=== PATIENT | female | born 1950 | race Caucasian/White ===

== ENCOUNTER → 2018-05-25 | Outpatient (CLI) | payer MEDICARE ==
[~2018-05-25] MED LIST: ACHD5005 PO; ASPI-586 PO; CALC500T24 PO; GABA-488 PO; LISI30TA5 PO; LOVA20TA2 PO; OMG1KC PO
--- NOTE | 2018-05-25 10:09 | Diagnostic Imaging Report ---
INDICATION: Screening. COMPARISON: 01/03/2016 back through 08/19/2012. TECHNIQUE: 3D tomosynthesis was performed and reviewed. FINDINGS: There are scattered fibroglandular densities bilaterally. There is no dominant mass, spiculated lesion, or suspicious calcification identified. There are a few benign type calcifications. The skin, nipples, and axillae are unremarkable. IMPRESSION: Benign findings as above. ACR BI-RADS Category 2: Benign findings. Result letter will be mailed to the patient. Note: At least 10% of breast cancer is not imaged by mammography. Dictated by: Dictated on workstation # [id number]
--- NOTE | 2018-05-25 13:22 | Diagnostic Imaging Report ---
INDICATION: Tobacco use qualifying for lung screening. Patient has a 20-[id number]-pxsx smoking history. COMPARISON: No prior examinations are available for comparison. TECHNIQUE: Multiple contiguous axial images were obtained through the chest utilizing low-dose CT protocol. Sagittal and coronal reformations were then performed. FINDINGS: There is a 3 mm nodule in the right upper lobe on image 60/series 4. There is a second 3 mm nodule on image 14/series 2 in the right upper lobe. There is a 3 mm nodule in the left lower lobe on image 22/series 2. There is no pathologically enlarged adenopathy in the chest. The heart size is normal. There are no endobronchial lesions. There is no pleural or pericardial fluid. There is no pneumothorax. The thoracic aorta is normal in caliber. There are some coronary artery calcifications. The visualized intra-abdominal structures are unremarkable. The osseous structures are unremarkable. IMPRESSION: LUNG RADS CATEGORY: 2. Continue annual screening with low-density CT in 12 months. ADDITIONAL FINDINGS: Coronary artery calcifications. Dictated by: Dictated on workstation # [id number]
== END ==
LOC: RAD 08:17
PROVIDERS: ATTEND Nurse Practitioner Family
DX: Z12.31 Encounter for screening mammogram for malignant neoplasm of breast (principal); Z12.2 Encounter for screening for malignant neoplasm of respiratory organs; I25.10 Atherosclerotic heart disease of native coronary artery without angina pectoris; F17.210 Nicotine dependence, cigarettes, uncomplicated; M85.88 Other specified disorders of bone density and structure, other site
CPT/HCPCS: 77067; 77080

== ENCOUNTER → 2019-09-27 | Outpatient (CLI) | payer MEDICARE ==
--- NOTE | 2019-09-27 12:00 | Diagnostic Imaging Report ---
EXAMINATION: CT Lung Screening. INDICATION: Nicotine dependence, screening for lung cancer, 40 pack year history of smoking. TECHNIQUE: Noncontrast, low-dose CT imaging performed according to the lung cancer screening protocol. Auto Exposure Controls were utilize during the CT exam to meet ALARA standards for radiation dose reduction. COMPARISON: 05/25/2018. FINDINGS: No significant adenopathy within the chest. Minimal scattered vascular calcifications. No aneurysmal dilatation of the thoracic aorta. The heart is within normal limits in size. No pericardial effusion. No pleural effusion. No pneumothorax. Minimal biapical pleural parenchymal scarring. 3 mm x 3 mm solid subpleural left lower lobe pulmonary nodule, axial image 140, is stable from the prior examination. Stable 3 mm x 3 mm solid pulmonary nodule within the right upper lobe, axial image 88. 2 mm subpleural right upper lobe pulmonary nodule is also stable, axial image 54. No new pulmonary nodule or opacity. The trachea is patent. The minimally visualized upper abdomen is unremarkable. No acute osseous abnormality. IMPRESSION: Stable sub-4 mm bilateral pulmonary nodules without new pulmonary nodule. No acute cardiopulmonary abnormality. LUNG-RADS CATEGORY:2: Benign appearance or behavior Follow-up: Continued annual screening low dose CT of the chest in 12 months. Dictated by: Dictated on workstation # [id number]
== END ==
LOC: RAD 10:56
PROVIDERS: ATTEND Nurse Practitioner Family
DX: Z12.2 Encounter for screening for malignant neoplasm of respiratory organs (principal); R91.8 Other nonspecific abnormal finding of lung field; F17.210 Nicotine dependence, cigarettes, uncomplicated

== ENCOUNTER 2020-04-15 10:59 | Inpatient (IN) | payer MEDICARE ==
[~2020-04-15] VITALS: Ht 162 cm; Wt 59.9 kg
[2020-04-15 11:59] LABS: BASOPHILS # (AUTO) 0.1 10^3/uL (0.0-0.1); BASOPHILS % (AUTO) 0 % (0-10); EOSINOPHILS # (AUTO) 0.3 10^3/uL (0.0-0.3); EOSINOPHILS % (AUTO) 2 % (0-10); HEMATOCRIT 41 % (35-52); HEMOGLOBIN 14.6 g/dL (11.5-16.0); LYMPHOCYTES # (AUTO) 3.6 10^3/uL (1.0-4.0); LYMPHOCYTES % (AUTO) 24 % (12-44); MEAN CORPUSCULAR HEMOGLOBIN 32 pg (25-34); MEAN CORPUSCULAR HGB CONC 36 g/dL (32-36); MEAN CORPUSCULAR VOLUME 90 fL (80-99); MONOCYTES # (AUTO) 1.4 10^3/uL (0.0-1.0); MONOCYTES % (AUTO) 9 % (0-12); NEUTROPHILS # (AUTO) 9.5 10^3/uL (1.8-7.8); NEUTROPHILS % (AUTO) 64 % (42-75); PLATELET COUNT 239 10^3/uL (130-400); WHITE BLOOD COUNT 14.9 10^3/uL (4.3-11.0)
[2020-04-15] MEDS ORDERED: fentaNYL INJECTION 100 MCG/2 ML AMP IVP ONE (12:00)
[2020-04-15 12:04] LABS: ALBUMIN 4.3 GM/DL (3.2-4.5); CHLORIDE 97 MMOL/L (98-107); POTASSIUM 3.1 MMOL/L (3.6-5.0); SODIUM 136 MMOL/L (135-145)
[2020-04-15 12:05] LABS: CALCIUM 9.7 MG/DL (8.5-10.1)
[2020-04-15] MEDS: NS IV 500 ML 500 ML IV SCH (12:05)
--- NOTE | 2020-04-15 12:05 | ED Abdominal Pain ---
General Chief Complaint: Abdominal/GI Problems Stated Complaint: RUQ PAIN Nursing Triage Note: ARRIVED VIA WC TO ROOM 05 WITH COMPLAINTS OF RLQ PAIN STARTING ON THURSDAY. WAS SEEN AT THE CLINIC ON THURSDAY AND WAS TOLD SHE NEEDED TO HAVE A BM. STATES SHE TOOK A LAXITIVE AND HAD A BM BUT THE PAIN REMAINS. Sepsis Screen: Possible Severe Sepsis Risk Source of Information: Patient Exam Limitations: No Limitations History of Present Illness Date Seen by Provider: Apr 15, 2020 Time Seen by Provider: 12:02 Initial Comments Patient is a 70-year-old female who presents to the emergency department today with a chief complaint of abdominal pain. Patient states that her abdominal pain started 5 days ago on Thursday evening. Patient states that she had not had a bowel movement in a couple of days prior to this. Patient started taking some mag citrate and on started developing diarrhea. She states that the pain is continued to persist. It is specifically localized in the left lower quadrant and radiates a little bit into the right lower quadrant. Patient denies any fevers or chills. She denies chest pain, shortness of breath, URI symptoms. She denies nausea and vomiting. She is able to eat and drink and is specifically asking for a drink of water at this time. Patient does relate that she has had previous colonoscopy a few years ago which demonstrated diverticulosis at that time. Patient has had previous appendectomy and cholecystectomy. She denies any dysuria, urgency or frequency. She states she is a healthy person. Patient has a history of hypertension. All other review of systems reviewed and negative except as stated above. Allergies and Home Medications Allergies Coded Allergies: NSAIDS (Non-Steroidal Anti-Inflamma (Verified Allergy, Severe, HYPERTENSION, 02/07/16) Penicillins (Verified Allergy, Intermediate, HIVES/SWELLING, 02/07/16) Sulfa (Sulfonamide Antibiotics) (Verified Allergy, Intermediate, HIVES/SWELLING, 02/07/16) Home Medications Calcium Carbonate 500 Mg Tab.chew, 500 MG PO BID, (Reported) Gabapentin 300 Mg Capsule, 300 MG PO TID, (Reported) Hydrocodone Bit/Acetaminophen 1 Each Tablet, 0.5 EACH PO HS, (Reported) Lisinopril 30 Mg Tablet, 30 MG PO DAILY, (Reported) Lovastatin 20 Mg Tablet, 20 MG PO DAILY, (Reported) [place] 3 Polyunsat Fatty Acids 1,000 Mg Cap, 1,000 MG PO BID, (Reported) Patient Home Medication List Home Medication List Reviewed: Yes Review of Systems Review of Systems Constitutional: see HPI EENTM: No Symptoms Reported Respiratory: No Symptoms Reported; Denies Cough, Denies Shortness of Air Cardiovascular: No Symptoms Reported Gastrointestinal: Abdomen Distended, Abdominal Pain, Diarrhea Genitourinary: No Symptoms Reported Musculoskeletal: no symptoms reported Skin: no symptoms reported Psychiatric/Neurological: No Symptoms Reported All Other Systems Reviewed Negative Unless Noted: Yes Past Ohjlgui-Flpmtl-Ingcbq Hx Patient Social History Type Used: Cigars Recent Infectious Disease Expo: No Recent Hopitalizations: No Immunizations Up To Date Tetanus Booster (TDap): Unknown PED Vaccines UTD: No Date of Pneumonia Vaccine: Jan 30, 2014 Date of Influenza Vaccine: Jan 07, 2016 Seasonal Allergies Seasonal Allergies: Yes Past Medical History Surgeries: Yes Appendectomy, Gallbladder, Tonsillectomy, Tubal Ligation Respiratory: No Cardiac: Yes Hypertension Neurological: No Reproductive Disorders: No Female Reproductive Disorders: Denies Sexually Transmitted Disease: No HIV/AIDS: No Gastrointestinal: No Musculoskeletal: Yes (HERNIATED DISC) Arthritis, Chronic Back Pain Endocrine: No Loss of Vision: Bilateral Hearing Impairment: Denies Cancer: No Psychosocial: No Integumentary: No Blood Disorders: No Adverse Reaction/Blood Tranf: No (N/A) Physical Exam Vital Signs Vital Signs - First Documented 04/15/20 11:13 Temp 35.6 Pulse 108 Resp 16 Pulse Ox 98 O2 Delivery Room Air Capillary Refill : Less Than 3 Seconds Height/Weight/BMI Height: 5'5.00" Weight: 129lbs. 0.8oz. 58.026408op; 21.00 BMI Method: General Appearance: WD/WN, no apparent distress Respiratory: lungs clear, normal breath sounds, no respiratory distress, no accessory muscle use Cardiovascular: regular rate, rhythm Gastrointestinal: soft, abnormal bowel sounds (Hyperactive), distended, guarding, tenderness (Left lower quadrant right lower quadrant) Extremities: non-tender, normal inspection, no pedal edema, no calf tenderness Neurologic/Psychiatric: alert, normal mood/affect, oriented x 3 Skin: normal color, warm/dry Progress/Results/Core Measures Results/Orders Lab Results Laboratory Tests Test 04/15/20 11:18 Range/Units White Blood Count 14.9 H 4.3-11.0 10^3/uL Red Blood Count 4.56 3.80-5.11 10^6/uL Hemoglobin 14.6 11.5-16.0 g/dL Hematocrit 41 35-52 % Mean Corpuscular Volume 90 80-99 fL Mean Corpuscular Hemoglobin 32 25-34 pg Mean Corpuscular Hemoglobin Concent 36 32-36 g/dL Red Cell Distribution Width 13.2 10.0-14.5 % Platelet Count 239 130-400 10^3/uL Mean Platelet Volume 11.0 9.0-12.2 fL Immature Granulocyte % (Auto) 1 % Neutrophils (%) (Auto) 64 42-75 % Lymphocytes (%) (Auto) 24 12-44 % Monocytes (%) (Auto) 9 0-12 % Eosinophils (%) (Auto) 2 0-10 % Basophils (%) (Auto) 0 0-10 % Neutrophils # (Auto) 9.5 H 1.8-7.8 10^3/uL Lymphocytes # (Auto) 3.6 1.0-4.0 10^3/uL Monocytes # (Auto) 1.4 H 0.0-1.0 10^3/uL Eosinophils # (Auto) 0.3 0.0-0.3 10^3/uL Basophils # (Auto) 0.1 0.0-0.1 10^3/uL Immature Granulocyte # (Auto) 0.1 0.0-0.1 10^3/uL Neutrophils % (Manual) 66 % Lymphocytes % (Manual) 27 % Monocytes % (Manual) 4 % Eosinophils % (Manual) 3 % Basophils % (Manual) 0 % Band Neutrophils 0 % Blood Morphology Comment NORMAL Sodium Level 136 135-145 MMOL/L Potassium Level 3.1 L 3.6-5.0 MMOL/L Chloride Level 97 L 98-107 MMOL/L Carbon Dioxide Level 25 21-32 MMOL/L Anion Gap 14 5-14 MMOL/L Blood Urea Nitrogen 19 H 7-18 MG/DL Creatinine 0.81 0.60-1.30 MG/DL Estimat Glomerular Filtration Rate > 60 BUN/Creatinine Ratio 23 Glucose Level 120 H 70-105 MG/DL Calcium Level 9.7 8.5-10.1 MG/DL Corrected Calcium 9.5 8.5-10.1 MG/DL Total Bilirubin 0.7 0.1-1.0 MG/DL Aspartate Amino Transf (AST/SGOT) 21 5-34 U/L Alanine Aminotransferase (ALT/SGPT) 36 0-55 U/L Alkaline Phosphatase 118 40-136 U/L Total Protein 8.0 6.4-8.2 GM/DL Albumin 4.3 3.2-4.5 GM/DL Lipase 8 8-78 U/L My Orders Orders - TIARA GAONA MD Ed Iv/Invasive Line Start (04/15/20 11:54) Cbc With Automated Diff (04/15/20 11:54) Comprehensive Metabolic Panel (04/15/20 11:54) Lipase (04/15/20 11:54) Ct Abdomen/Pelvis Wo (04/15/20 11:54) Fentanyl Injection (Sublimaze Injection (04/15/20 12:00) Ns Iv 500 Ml (Sodium Chloride 0.9%) (04/15/20 12:00) Manual Differential (04/15/20 11:18) Medications Given in ED Current Medications Medications Dose Ordered Sig/Bill Route Start Time Stop Time Status Last Admin Dose Admin Fentanyl Citrate 25 mcg ONCE ONCE IVP 04/15/20 12:00 04/15/20 12:01 DC 04/15/20 12:04 25 MCG Vital Signs/I&O 04/15/20 11:13 Temp 35.6 Pulse 108 Resp 16 B/P (MAP) Pulse Ox 98 O2 Delivery Room Air Progress Progress Note : Time: 12:50 Progress Note Patient currently resting comfortably. No pain unless she is moving around. CT abdomen and pelvis shows findings consistent with acute appendicitis and likely sequelae of small perforation with small abscess formation in the right lower quadrant. Case is discussed with Dr. Wilkerson who will come to the emergency room to evaluate the patient. Patient's NPO status is 5:30 am she had coffee with milk. SHe hasnt really had any solid food to speak of in 3 days due to having constipation and then diarrhea Departure Communication (Admissions) Time/Spoke to Admitting Phy: 12:50 Impression Primary Impression: Abdominal pain Qualified Codes: R10.31 - Right lower quadrant pain Additional Impression: Acute appendicitis Qualified Codes: K35.33 - Acute appendicitis with perforation and localized peritonitis, with abscess Disposition: ADMITTED INPATIENT Condition: Stable Admissions Decision to Admit Reason: Admit from ER (General) Departure-Patient Inst. Referrals: DIONI GAGE DO (PCP) Primary Care Physician NISHA PAPPAS (Family) Primary Care Physician TIARA GAONA MD Apr 15, 2020 12:05
[2020-04-15 12:06] LABS: GLUCOSE 120 MG/DL (70-105)
[2020-04-15 12:08] LABS: BILIRUBIN,TOTAL 0.7 MG/DL (0.1-1.0); CARBON DIOXIDE 25 MMOL/L (21-32)
[2020-04-15 12:10] LABS: ALKALINE PHOSPHATASE 118 U/L (40-136); CREATININE SERUM 0.81 MG/DL (0.60-1.30); GFR ESTIMATED > 60
[2020-04-15 12:11] LABS: BUN/CREATININE RATIO 23
[2020-04-15 12:13] LABS: ALANINE AMINOTRANSFERASE 36 U/L (0-55); LIPASE 8 U/L (8-78)
[2020-04-15 12:14] LABS: BAND NEUTROPHILS 0 %; BASOPHILS % (MANUAL) 0 %; EOSINOPHILS % (MANUAL) 3 %; LYMPHOCYTES % (MANUAL) 27 %; MONOCYTES % (MANUAL) 4 %; NEUTROPHILS % (MANUAL) 66 %; RBC MORPH NORMAL
--- NOTE | 2020-04-15 12:36 | Diagnostic Imaging Report ---
PROCEDURE: CT abdomen and pelvis without contrast. TECHNIQUE: Multiple contiguous axial images were obtained through the abdomen and pelvis without the use of intravenous contrast. Auto Exposure Controls were utilized during the CT exam to meet ALARA standards for radiation dose reduction. INDICATION: Right lower quadrant pain. Abdominal distention. COMPARISON: 09/27/2019. FINDINGS: The heart is unremarkable. Minimal dependent atelectasis is seen. The appendix is dilated measuring 1.0 cm in diameter. Multiple appendicoliths are noted. There is periappendicular fat stranding. A loculated collection is seen adjacent to the appendix measuring 2.7 x 1.9 cm, suspicious for abscess secondary to perforation. A small amount of air is seen within this collection. No free fluid or free air is seen in the abdomen and pelvis. No evidence of bowel obstruction. There is hepatic steatosis. The gallbladder is surgically absent. The spleen, pancreas, adrenal glands, and kidneys have a normal noncontrast CT appearance. There is no pathologically enlarged mesenteric or retroperitoneal adenopathy. No acute fracture seen in the abdomen and pelvis. Degenerative changes are present in the lumbar spine. The urinary bladder is decompressed. IMPRESSION: 1. Findings representing acute appendicitis with likely sequelae of perforation and small abscess formation in the right lower quadrant. No free air or free fluid is seen in the abdomen and pelvis. No evidence of bowel obstruction. 2. Hepatic steatosis. Dictated by: Dictated on workstation # [id number]
--- NOTE | 2020-04-15 13:18 | NUR ---
DR NUNEZ HERE TO SEE THE PT.
--- NOTE | 2020-04-15 13:44 | Consultation - Surgery ---
History of Present Illness History of Present Illness Patient Consulted On(kurt/time) 04/15/20 13:38 Time Seen by Provider: 13:17 History of Present Illness Surgery asked to consult regarding Right sided abdominal pain. HPI per ED: Patient is a 70-year-old [facility] with a chief complaint of abdominal pain. Patient states that her abdominal pain started 5 days ago on Thursday evening. Patient states that she had not had a bowel movement in a couple of days prior to this. Patient started taking some mag citrate and on started developing diarrhea. She states that the pain is continued to persist. It is specifically localized in the left lower quadrant and radiates a little bit into the right lower quadrant. Patient denies any fevers or chills. She denies chest pain, shortness of breath, URI symptoms. She denies nausea and vomiting. She is able to eat and drink and is specifically asking for a drink of water at this time. Patient does relate that she has had previous colonoscopy a few years ago which demonstrated diverticulosis at that time. Patient has had previous appendectomy and cholecystectomy. She denies any dysuria, urgency or frequency. She states she is a healthy person. Patient has a history of hypertension. When I spoke to pt she stated she has never had pain like this before. She thought pain was more on the left, but now is more on the right. Rating it as 8 out of 10 and was worse with movements. Nothing is really making it better. Allergies and Home Medications Allergies Coded Allergies: NSAIDS (Non-Steroidal Anti-Inflamma (Verified Allergy, Severe, HYPERTENSION, 02/07/16) Penicillins (Verified Allergy, Intermediate, HIVES/SWELLING, 02/07/16) Sulfa (Sulfonamide Antibiotics) (Verified Allergy, Intermediate, HIVES/SWELLING, 02/07/16) Home Medications Calcium Carbonate 500 Mg Tab.chew, 500 MG PO BID, (Reported) Gabapentin 300 Mg Capsule, 300 MG PO TID, (Reported) Hydrocodone Bit/Acetaminophen 1 Each Tablet, 0.5 EACH PO HS, (Reported) Lisinopril 30 Mg Tablet, 30 MG PO DAILY, (Reported) Lovastatin 20 Mg Tablet, 20 MG PO DAILY, (Reported) [place] 3 Polyunsat Fatty Acids 1,000 Mg Cap, 1,000 MG PO BID, (Reported) Patient Home Medication List Home Medication List Reviewed: Yes Past Bqijllx-Dhqsgp-Vpzxfy Hx Patient Social History Smoking Status: Current Someday Smoker Type Used: Cigars Recent Hopitalizations: No Alcohol Use?: No Immunizations Up To Date Tetanus Booster (TDap): Unknown PED Vaccines UTD: No Date of Pneumonia Vaccine: Jan 30, 2014 Date of Influenza Vaccine: Jan 07, 2016 Seasonal Allergies Seasonal Allergies: Yes Surgeries History of Surgeries: Yes Surgeries: Appendectomy, Gallbladder, Tonsillectomy, Tubal Ligation Respiratory History of Respiratory Disorde: No Cardiovascular History of Cardiac Disorders: Yes Cardiac Disorders: Hypertension Neurological History of Neurological Disord: No Reproductive System Hx Reproductive Disorders: No Sexually Transmitted Disease: No HIV/AIDS: No Female Reproductive Disorders: Denies Genitourinary History of Genitourinary Disor: No Gastrointestinal History of Gastrointestinal Di: No Musculoskeletal History of Musculoskeletal Dis: Yes (HERNIATED DISC) Musculoskeletal Disorders: Arthritis, Chronic Back Pain Endocrine History of Endocrine Disorders: No HEENT History of HEENT Disorders: No Loss of Vision: Bilateral Hearing Impairment: Denies Cancer History of Cancer: No Psychosocial History of Psychiatric Problem: No Integumentary History of Skin or Integumenta: No Blood Transfusions History of Blood Disorders: No Adverse Reaction to a Blood Tr: No (N/A) Family Medical History Significant Family History: Heart Disease (both parents), Cancer (Father - Lung CA), Hypertension (Mother) Review of Systems-General Constitutional: fever; No malaise, No weakness EENTM: No mouth pain, No mouth swelling, No epistaxis, No throat pain, No throat swelling Respiratory: No cough, No dyspnea on exertion, No short of breath Cardiovascular: No chest pain, No edema, No palpitations Gastrointestinal: abdominal pain; No jaundice; loss of appetite, nausea, vomiting Genitourinary: No dysuria, No frequency, No hematuria Musculoskeletal: No joint pain, No joint swelling, No muscle pain, No muscle stiffness Skin: No change in color, No change in hair/nails Psychiatric/Neurological: Denies Anxiety, Denies Depressed, Denies Seizure; Tremors Other Pt denies any hx of abnormal bleeding or bruising. Physical Exam-General Problems Physical Exam Vital Signs Vital Signs - First Documented 04/15/20 11:13 Temp 35.6 Pulse 108 Resp 16 Pulse Ox 98 O2 Delivery Room Air Capillary Refill : Less Than 3 Seconds General Appearance: WD/WN, no apparent distress Eyes: Bilateral Eye PERRL, Bilateral Eye EOMI HEENT: pharynx normal; No scleral icterus (R), No scleral icterus (L), No pale conjunctivae (R), No pale conjunctivae (L) Neck: non-tender, supple, normal inspection Respiratory: chest non-tender, lungs clear, normal breath sounds, no respi ratory distress, no accessory muscle use Cardiovascular: no murmur, tachycardia Gastrointestinal: no organomegaly, distended, guarding, rebound, tenderness, hernia (umbilical) Rectal: deferred Back: no CVA tenderness, no vertebral tenderness Extremities: non-tender, normal inspection, no pedal edema, no calf tenderness Neurologic/Psychiatric: second hand paper machine II-XII nml as tested, no motor/sensory deficits, alert, normal mood/affect, oriented x 3 Skin: normal color, warm/dry Lymphatic: no adenopathy (neck, axilla or groin) Data Review Labs Laboratory Tests 04/15/20 11:18: White Blood Count 14.9H, Red Blood Count 4.56, Hemoglobin 14.6, Hematocrit 41, Mean Corpuscular Volume 90, Mean Corpuscular Hemoglobin 32, Mean Corpuscular Hemoglobin Concent 36, Red Cell Distribution Width 13.2, Platelet Count 239, Mean Platelet Volume 11.0, Immature Granulocyte % (Auto) 1, Neutrophils (%) (Auto) 64, Lymphocytes (%) (Auto) 24, Monocytes (%) (Auto) 9, Eosinophils (%) (Auto) 2, Basophils (%) (Auto) 0, Neutrophils # (Auto) 9.5H, Lymphocytes # (Auto) 3.6, Monocytes # (Auto) 1.4H, Eosinophils # (Auto) 0.3, Basophils # (Auto) 0.1, Immature Granulocyte # (Auto) 0.1, Neutrophils % (Manual) 66, Lymphocytes % (Manual) 27, Monocytes % (Manual) 4, Eosinophils % (Manual) 3, Basophils % (Manual) 0, Band Neutrophils 0, Blood Morphology Comment NORMAL, Sodium Level 136, Potassium Level 3.1L, Chloride Level 97L, Carbon Dioxide Level 25, Anion Gap 14, Blood Urea Nitrogen 19H, Creatinine 0.81, Estimat Glomerular Filtration Rate > 60, BUN/Creatinine Ratio 23, Glucose Level 120H, Calcium Level 9.7, Corrected Calcium 9.5, Total Bilirubin 0.7, Aspartate Amino Transf (AST/SGOT) 21, Alanine Aminotransferase (ALT/SGPT) 36, Alkaline Phosphatase 118, Total Protein 8.0, Albumin 4.3, Lipase 8 Radiology Date of Exam:04/15/20 CT ABDOMEN/PELVIS WO PROCEDURE: CT abdomen and pelvis without contrast. TECHNIQUE: Multiple contiguous axial images were obtained through the abdomen and pelvis without the use of intravenous contrast. Auto Exposure Controls were utilized during the CT exam to meet ALARA standards for radiation dose reduction. INDICATION: Right lower quadrant pain. Abdominal distention. COMPARISON: 09/27/2019. FINDINGS: The heart is unremarkable. Minimal dependent atelectasis is seen. The appendix is dilated measuring 1.0 cm in diameter. Multiple appendicoliths are noted. There is periappendicular fat stranding. A loculated collection is seen adjacent to the appendix measuring 2.7 x 1.9 cm, suspicious for abscess secondary to perforation. A small amount of air is seen within this collection. No free fluid or free air is seen in the abdomen and pelvis. No evidence of bowel obstruction. There is hepatic steatosis. The gallbladder is surgically absent. The spleen, pancreas, adrenal glands, and kidneys have a normal noncontrast CT appearance. There is no pathologically enlarged mesenteric or retroperitoneal adenopathy. No acute fracture seen in the abdomen and pelvis. Degenerative changes are present in the lumbar spine. The urinary bladder is decompressed. IMPRESSION: 1. Findings representing acute appendicitis with likely sequelae of perforation and small abscess formation in the right lower quadrant. No free air or free fluid is seen in the abdomen and pelvis. No evidence of bowel obstruction. 2. Hepatic steatosis. Dictated by: Dictated on workstation # [id number] Dict: 04/15/20 1230 Trans: 04/15/20 1243 [facility] [id number] Interpreted by: JOSEPH TARIQ DO Electronically signed by: JOSEPH TARIQ DO 04/15/20 1243 Assessment/Plan Assessment/Plan Assessment/Plan Acute Appendicitis with perforation HTN Arthritis Umbilial Hernia Pt has an abscess in the RLQ and appendicolith seen on CT, with inflammation around the appendix. She needs to go to the OR for appendectomy. Discussed the procedure with her; risks and complications not limited to pain, bleeding, infection, scar, damage to bowel and need for further procedure. Will get IV ABX, IV fluids, pain control and consent for Laparoscopic Appendectomy. All questions answered to her satisfaction. RODNEY NUNEZ DO Apr 15, 2020 13:43
[2020-04-15] MEDS ORDERED: fentaNYL INJECTION 100 MCG/2 ML AMP ONE (13:55)
[2020-04-15] MEDS ORDERED: MIDAZOLAM 2 MG/2 ML (VERSED) VIAL ONE (13:56)
[2020-04-15] MEDS: LACTATED RINGERS 1,000 ML IV PRN ×2 (13:58→14:32)
[2020-04-15] MEDS ORDERED: CLINDAMYCIN 600 MG/4ML (CLEOCIN) VIAL ONE (14:09)
[2020-04-15] MEDS ORDERED: LIDOCAINE/EPI 1%-1:200,000 (XYLOCAINE) 30 ML VIAL ONE (14:10)
[2020-04-15] MEDS ORDERED: ROCURONIUM 10 MG/ML 5 ML SYRINGE IV ONE (14:57)
[2020-04-15] MEDS ORDERED: SUCCINYLCHOLINE INJ 100 MG/5 ML SYR/VIAL ONE (14:57)
[2020-04-15] MEDS ORDERED: ONDANSETRON 4 MG/2 ML (SDV) Z0FRAN ONE (14:57)
[2020-04-15] MEDS ORDERED: LIDOCAINE PF 2% 5 ML (XYLOCAINE) VIAL ONE (14:57)
[2020-04-15] MEDS ORDERED: SEVOFLURANE (ULTANE) 15 ML INHAL SOLN ONE (14:57)
[2020-04-15] MEDS ORDERED: proPOfol 200 MG/20 ML (DIPRIVAN) VIAL IV ONE (14:57)
[2020-04-15] MEDS ORDERED: NEOSTIGMINE 3 MG/3 ML VIAL ONE (14:59)
[2020-04-15] MEDS ORDERED: GLYCOPYRROLATE 0.2 MG/ML (ROBINUL) 2 ML VIAL ONE (14:59)
--- NOTE | 2020-04-15 15:10 | Progress Note-Post Operative ---
Post-Operative Progess Note Surgeon (s)/Typecasting Machine Operator (s) Surgeon RODNEY NUNEZ DO Typecasting Machine Operator: PORSCHE Flannery Pre-Operative Diagnosis Acute appy with perforation Post-Operative Diagnosis same Procedure & Operative Findings Date of Procedure 04/15/20 Procedure Performed/Findings Laparoscopic Appendectomy with drainage and washout of Abscess PROCEDURE: Laparoscopic appendectomy. COMPLICATIONS: None. INDICATIONS: The patient is a 70 year old female who has been having right lower quadrant abdominal pain. Patient's exam consistent with appendicitis. I discussed risk and benefits of laparoscopic appendectomy and all indicated procedures with the possibility being a normal appendix. The patient understands the risks and benefits and wishes to proceed. Consent was signed on the chart. DESCRIPTION OF PROCEDURE: The patient was taken to the operating suite, prepped and draped in a sterile fashion. Timeout was performed. Local anesthetic was infiltrated just above the umbilicus and 11-blade scalpel was used to make a skin incision. Cautery was used to dissect down to the fascia and scored. Kochers were used to grasp and elevate it and the abdomen was then entered. A 0 Vicryl was placed in a lmuolc-eo-ebcba fashion for closure at the end of the case. The balloon trocar was inserted into the abdomen and pneumoperitoneum was achieved. Under direct visualization of the laparoscope, a 5 mm trocar was placed in the suprapubic region and a 5 mm trocar was placed in the left lower quadrant. Appendix was located, retrocecal and and abscess cavity was found. As I was pushing adhesions and inflammation away to visualize appendix; purulent fluid came out. Then suctioned this up and flushed with saline. Finally able to identify the base of the appendix and dissected around. Once at the base an Endo-SHEKHAR 2.5 stapler was then fired across the base of the appendix. The mesoappendix was then divided with the Ligasure in a stepwise fashion; once it was completely removed it was then placed in an Endobag and removed through the 12 mm trocar site. The abdomen was then irrigated with a total of 3 liters of warm normal saline and suctioned; to completely get all purulence out. Some adhesions from the open Cholecystectomy were noted; taken down with ligasure to be able to see above the liver and suction out all fluid. The abdomen was then desufflated and the trocars were removed. The 0 Vicryl placed at the beginning of the case was then tied closing the 12 mm fascial defect. The skin was then closed using 4-0 Monocryl in a subcuticular fashion. The abdomen was then washed and dried and Skin Affix was placed over the incisions. The patient tolerated the procedure well without any complications and was taken to the recovery room in stable condition. Anesthesia Type GET Estimated Blood Loss Estimated blood loss (mL): scant Specimens/Packing Specimens Removed appendix RODNEY NUNEZ DO Apr 15, 2020 15:10
[2020-04-15 15:13] VITALS: BP 109/65
[2020-04-15] MEDS ORDERED: ONDANSETRON 4 MG/2 ML (SDV) Z0FRAN IVP PRN ×2 (15:15→15:30)
[2020-04-15] MEDS ORDERED: CLINDAMYCIN 600 MG/50 ML IVPB 50 ML IV SCH (15:17)
[2020-04-15 15:20] VITALS: BP 118/69
--- NOTE | 2020-04-15 15:20 | Anesthesia-General Post-Op ---
General Patient Condition Mental Status/LOC: Same as Preop Cardiovascular: Satisfactory Nausea/Vomiting: Absent Respiratory: Satisfactory Pain: Controlled Complications: Absent Post Op Complications Complications None Follow Up Care/Instructions Patient Instructions None needed. Anesthesia/Patient Condition Patient Condition Patient is doing well, no complaints, stable vital signs, no apparent adverse anesthesia problems. No complications reported per nursing. ANALISA GALVAN CRNA Apr 15, 2020 15:20
[2020-04-15 15:30] VITALS: BP 106/64
[2020-04-15] MEDS ORDERED: morphine INJ 10 MG/ML 1ML (SYR OR VIAL) IVP ONE (15:30)
[2020-04-15 15:40] VITALS: BP 108/65
[2020-04-15 15:50] VITALS: BP 100/59
[2020-04-15] MEDS: LACTATED RINGERS 1,000 ML IV SCH ×2 (17:24→23:58)
[2020-04-15 19:28] VITALS: BP 122/75
[2020-04-15] MEDS: HYDROcodone/APAP 5 MG/325 MG (LORTAB) TAB PO PRN ×2 (19:49→23:58)
[2020-04-15] MEDS: CLINDAMYCIN 600 MG/50 ML IVPB 50 ML IV SCH (21:56)
[2020-04-16 00:32] VITALS: BP 108/58
[2020-04-16 04:00] VITALS: BP 100/59
[2020-04-16] MEDS: HYDROcodone/APAP 5 MG/325 MG (LORTAB) TAB PO PRN (04:25)
[2020-04-16] MEDS: NS IV 500 ML 500 ML IV SCH (04:56)
[2020-04-16] MEDS: CLINDAMYCIN 600 MG/50 ML IVPB 50 ML IV SCH (05:21)
--- NOTE | 2020-04-16 06:48 | NUR ---
Order received from Dr Wilkerson to advance diet to regular diet.
--- NOTE | 2020-04-16 06:49 | Anesthesia-General Post-Op ---
General Patient Condition Mental Status/LOC: Same as Preop Cardiovascular: Satisfactory Nausea/Vomiting: Absent Respiratory: Satisfactory Pain: Controlled Complications: Absent Post Op Complications Complications None Follow Up Care/Instructions Patient Instructions None needed. Anesthesia/Patient Condition Patient Condition Patient is doing well, no complaints, stable vital signs, no apparent adverse anesthesia problems. No complications reported per nursing. TERI MIRANDA CRNA Apr 16, 2020 06:49
--- NOTE | 2020-04-16 07:11 | Progress Note - Surgery ---
Subjective Date Seen by a Provider: Apr 16, 2020 Time Seen by a Provider: 06:45 Subjective/Events-last exam Serene is a 70 yo female that had an emergency appendectomy yesterday. This morning she complained of all over dull/aching abdominal pain. Pain medication is being given every 4 hours and it really helping her. She denies SOB and was sitting up in her chair upon entering the room. Pt stated that she has yet to have a BM but has not had an issue urinating. She is able to walk around the room to the bathroom and her chair without difficulty. Previously she was on a clear diet but was advanced this morning. Pt is hungry and excited for breakfast. Review of Systems Gastrointestinal: Abdominal Pain Focused Exam Time of Focused Exam: 06:45 Respiratory: Chest Non Tender, Lungs Clear, Normal Breath Sounds, No Accessory Muscle Use, No Respiratory Distress Cardiovascular: Regular Rate, Rhythm, No Edema, No Gallop, No Murmur, Normal Peripheral Pulses Skin: normal color, warm/dry Objective Exam Vital Signs Date Time Temp Pulse Resp B/P (MAP) Pulse Ox O2 Delivery O2 Flow Rate FiO2 04/16/20 04:00 36.2 65 16 100/59 (73) 93 Room Air 04/16/20 00:32 36.2 75 16 108/58 (75) 94 Room Air 04/15/20 20:21 Room Air 04/15/20 19:28 36.4 81 18 122/75 (91) 95 Room Air 04/15/20 16:36 Room Air 04/15/20 15:50 Room Air 04/15/20 15:50 36.2 16 100/59 (73) 100 Room Air 04/15/20 15:40 18 108/65 (79) 98 OxyMask 2 04/15/20 15:40 OxyMask 2 04/15/20 15:30 17 106/64 (78) 96 OxyMask 4 04/15/20 15:25 OxyMask 4 04/15/20 15:20 16 118/69 (85) 99 OxyMask 6 04/15/20 15:15 OxyMask 6 04/15/20 15:13 OxyMask 8 04/15/20 15:13 36.5 20 109/65 (80) 97 OxyMask 8 04/15/20 13:47 97 16 117/80 97 Room Air 04/15/20 11:13 35.6 108 16 98 Room Air I & O 04/16/20 07:00 Intake Total 2000 ml Balance 2000 ml Capillary Refill : Less Than 3 Seconds General Appearance: No Apparent Distress, WD/WN HEENT: PERRL/EOMI Neck: Normal Inspection, Non Tender, Supple Respiratory: Chest Non Tender, Lungs Clear, Normal Breath Sounds, No Accessory Muscle Use, No Respiratory Distress Cardiovascular: Regular Rate, Rhythm, No Edema, No Gallop, No Murmur, Normal Peripheral Pulses Gastrointestinal: normal bowel sounds, soft, no organomegaly, no pulsatile mass, tenderness (to palpation in all quadrants), hernia (umbilical) Extremity: Normal Capillary Refill, Normal Inspection, Non Tender, No Calf Tenderness, No Pedal Edema Neurologic/Psychiatric: Alert, Oriented x3, No Motor/Sensory Deficits, Normal Mood/Affect Skin: Normal Color, Warm/Dry Lymphatic: No Adenopathy (cervical, inguinal, or axila) Results Lab Laboratory Tests 04/15/20 11:18: White Blood Count 14.9H, Red Blood Count 4.56, Hemoglobin 14.6, Hematocrit 41, Mean Corpuscular Volume 90, Mean Corpuscular Hemoglobin 32, Mean Corpuscular Hemoglobin Concent 36, Red Cell Distribution Width 13.2, Platelet Count 239, Mean Platelet Volume 11.0, Immature Granulocyte % (Auto) 1, Neutrophils (%) (Auto) 64, Lymphocytes (%) (Auto) 24, Monocytes (%) (Auto) 9, Eosinophils (%) (Auto) 2, Basophils (%) (Auto) 0, Neutrophils # (Auto) 9.5H, Lymphocytes # (Auto) 3.6, Monocytes # (Auto) 1.4H, Eosinophils # (Auto) 0.3, Basophils # (Auto) 0.1, Immature Granulocyte # (Auto) 0.1, Neutrophils % (Manual) 66, Lymphocytes % (Manual) 27, Monocytes % (Manual) 4, Eosinophils % (Manual) 3, Basophils % (Manual) 0, Band Neutrophils 0, Blood Morphology Comment NORMAL, Sodium Level 136, Potassium Level 3.1L, Chloride Level 97L, Carbon Dioxide Level 25, Anion Gap 14, Blood Urea Nitrogen 19H, Creatinine 0.81, Estimat Glomerular Filtration Rate > 60, BUN/Creatinine Ratio 23, Glucose Level 120H, Calcium Level 9.7, Corrected Calcium 9.5, Total Bilirubin 0.7, Aspartate Amino Transf (AST/SGOT) 21, Alanine Aminotransferase (ALT/SGPT) 36, Alkaline Phosphatase 118, Total Protein 8.0, Albumin 4.3, Lipase 8 04/15/20 14:08: Assessment/Plan Assessment/Plan Assessment/Plan emergency appendectomy performed 04/15 HTN Arthritis Umbilial Hernia continue pain medication as needed remove IV PB ARNOLD MED STUDENT Apr 16, 2020 07:11
[2020-04-16 08:00] VITALS: BP 100/55
[2020-04-16] MEDS: LACTATED RINGERS 1,000 ML IV SCH (08:29)
[2020-04-16] MEDS ORDERED: PANTOPRAZOLE 40 MG (PROTONIX) VIAL IVP SCH (09:00)
--- NOTE | 2020-04-16 10:24 | NUR ---
Pt is Confucianism and declines Communion. Analytical Lab Technician offered blessing.
[2020-04-16] MEDS ORDERED: CLIN300C12 PO (10:28)
--- NOTE | 2020-04-16 10:29 | Discharge Inst-Surgical ---
Discharge Inst-Surgical Depart Medication/Instructions New, Converted or Re-Newed RX: Transmitted to Pharmacy Patient Instructions Follow up Appt: Make appointment for 1 week. [phone] Instructions: No lifting greater than 20 pounds. No strenuous activity. May shower in 24 hours, no tub bath or soaking. Use incentive spirometer at home as directed. No Smoking Skin/Wound Care: May remove bandages in am. You need to leave the Dermabond on incision it will fall off on it's own. Symptoms to Report: Appetite Changes, Extremity Discoloration, Numbness/Tingling, Swelling Increased, Bleeding Excessive, Eyesight Changes, Pain Increased, Urine Color Change, Constipation(Persistent), Fever over 101 degree F, Pain/Pressure in chest, Urinating Difficulty, Cough Up/Vomit Blood, Heart Beat Irreg/Pounding, Pain/Pressure in jaw, Cramps in feet or legs, Lightheadedness, Pain/Pressure in shoulder, Diarrhea(Persistent), Memory Changes Suddenly, Questions/Concerns, Weight gain consecutive days, Dizziness/Fainting, Nausea/Vomiting, Shortness of Breath, Weight gain over 2 pounds If questions or concerns contact your physician Or seek help at emergency department. Activity Activity as Tolerated: Yes Activity Instructions: Avoid Stress to Incision Driving Instructions: No Driving/Refer to Dr. Ding Discharge Diet: No Restrictions Diet After 24 Hours: Clear Liquid if Nauseous If Any Problems/Questions/Issu: Contact Your Physician, Go to Emergency Room Skin/Wound Care Infection Signs and Symptoms: Increased Redness, Foul Odor of Wound, Increased Drainage, Skin Itchy or Has a Rash, Increased Swelling, Temperature Above 101 F Bathing Instructions: Shower Stitches/[place]/Dermabond Dis: Dermabond Ice Pack: Ice On and Off Site RODNEY NUNEZ DO Apr 16, 2020 10:29
[2020-04-16 12:40] VITALS: BP 100/55
--- NOTE | 2020-04-16 12:50 | NUR ---
JOANNA PACHECO demonstrates understanding of discharge instructions and accurately returns instructions upon questioning. Copy of Post-Discharge Instructions and Medication Discharge Instructions given to patient. JOANNA PACHECO is able to manage continuing needs after discharge. Patients belongings returned to patient. Skin dry and intact; no breakdown noted. Patient discharged from [facility] on 04/16/20 at 1240. JOANNA PACHECO left floor via wheelchair, accompanied by staff.
--- NOTE | 2020-04-16 14:45 | NUR ---
"RD ASSESSMENT PMHx: HTN; PT INTERACTION: Pt was awake and pleasant during consult for MST score. Pt states current appetite is fair. Note PO intake 50% x1meal, per chart review. Pt states following a regular diet at home, and has no issues with chewing/swallowing food, despite missing several teeth. Pt states no issues with nausea, vomiting, constipation, or diarrhea, and that her last BM was 04/15. Not pt not currently on bowel regimen per chart review. Pt states no recent wt changes. Note unable to determine recent wt hx, per chart review. Upon visual assessment, pt appears to adequately nourished with no visible signs of muscle/fat wasting and a BMI of 22.8 (Normal BMI for age). Given PO intake, wt hx, and visual assessment, pt does not meet criteria for malnutrition per ASPEN guidelines. Est. kcal needs: 4702-8291 kcal | 25-30 kcal/kg Est. Pro needs: 48-60 g Pro | 0.8-1.0 g Pro/kg PES STATEMENT: Inadequate oral intake (NI-2.1) related to loss of appetite, as evidenced by pt interview, and PO intake 50% x1meal. INTERVENTION: Continue with current diet order of Regular diet. Pt may benefit from nutrition supplementation if PO intake declines. Will continue to follow and reassess as pt needs, intake, and status change. Imtiaz PEREIRA MS RD LD [phone] cell"
[2020-04-16] MEDS ORDERED: ENOXAPARIN 40 MG/0.4 ML (LOVENOX) SYR SC SCH (15:15)
== END 2020-04-16 12:40 | disposition home or self-care (01) | DRG 340 ==
LOC: EDUNIT# 10:59 → ER 11:01 → SDC 13:35 → 4TH 15:10
PROVIDERS: ADMIT Surgery; ATTEND Surgery
PROC: 0DTJ4ZZ Resection of Appendix, Percutaneous Endoscopic Approach (ICD-10-PCS; principal; 2020-04-15 13:58)
DX: K35.33 Acute appendicitis with perforation, localized peritonitis, and gangrene, with abscess (principal); I10 Essential (primary) hypertension; M19.91 Primary osteoarthritis, unspecified site; M54.9 Dorsalgia, unspecified; H54.3 Unqualified visual loss, both eyes; K42.9 Umbilical hernia without obstruction or gangrene; Z90.49 Acquired absence of other specified parts of digestive tract; Z20.822 Contact with and (suspected) exposure to COVID-19; Z88.0 Allergy status to penicillin; Z88.2 Allergy status to sulfonamides; Z88.8 Allergy status to other drugs, medicaments and biological substances
CPT/HCPCS: 36415; 74176; 80053; 83690; 85007; 85027; 87635

== ENCOUNTER 2020-09-12 05:39 | Outpatient (CLI) | payer MEDICARE ==
[~2020-09-12] VITALS: Ht 162.6 cm; Wt 56.3 kg
[~2020-09-12 05:39] MED LIST changes: +CLIN300C12 PO
[2020-09-12] MEDS ORDERED: ATOR20TA66 PO (14:10)
[2020-09-12] MEDS ORDERED: PREG50CA65 PO (14:10)
[2020-09-12] MEDS ORDERED: ASPI-999 PO (14:10)
[2020-09-12] MEDS ORDERED: FOLI1TAB PO (14:10)
[2020-09-12] MEDS ORDERED: CALC500T64 PO (14:10)
[2020-09-12] MEDS ORDERED: CETI10TA17 PO (14:10)
[2020-09-12] MEDS ORDERED: ACHD5005 PO (14:10)
[2020-09-12] MEDS ORDERED: METF-865 PO (14:10)
== END 2020-09-12 14:27 | disposition home or self-care (01) ==
LOC: PREOP 05:39
PROVIDERS: ATTEND Surgery
DX: Z01.818 Encounter for other preprocedural examination (principal)

== ENCOUNTER 2020-09-19 08:07 | Day surgery (SDC) | payer MEDICARE ==
[~2020-09-19] VITALS: Ht 162.6 cm; Wt 56.3 kg
[2020-09-19] VITALS (11 sets, daily range): BP systolic 92–131; BP diastolic 61–90
[~2020-09-19 08:07] MED LIST changes: +ASPI-999 PO; +ATOR20TA66 PO; +CALC500T64 PO; +CETI10TA17 PO; +FOLI1TAB PO; +METF-865 PO; +PREG50CA65 PO
--- NOTE | 2020-09-19 08:24 | Progress Note-Pre Operative ---
Pre-Operative Progress Note H&P Reviewed The H&P was reviewed, patient examined and no changes noted. Time Seen by Provider: 08:23 Date H&P Reviewed: Sep 19, 2020 Time H&P Reviewed: 08:23 Pre-Operative Diagnosis: incarcerated Ventral/incisional hernia RODNEY NUNEZ DO Sep 19, 2020 08:24
[2020-09-19 08:42] LABS: BASOPHILS # (AUTO) 0.1 10^3/uL (0.0-0.1); BASOPHILS % (AUTO) 1 % (0-10); EOSINOPHILS # (AUTO) 0.3 10^3/uL (0.0-0.3); EOSINOPHILS % (AUTO) 2 % (0-10); HEMATOCRIT 46 % (35-52); LYMPHOCYTES # (AUTO) 6.1 10^3/uL (1.0-4.0); LYMPHOCYTES % (AUTO) 40 % (12-44); MEAN CORPUSCULAR HEMOGLOBIN 31 pg (25-34); MEAN CORPUSCULAR HGB CONC 35 g/dL (32-36); MEAN CORPUSCULAR VOLUME 90 fL (80-99); MEAN PLATELET VOLUME 10.6 fL (9.0-12.2); MONOCYTES # (AUTO) 0.9 10^3/uL (0.0-1.0); MONOCYTES % (AUTO) 6 % (0-12); NEUTROPHILS % (AUTO) 52 % (42-75); PLATELET COUNT 224 10^3/uL (130-400); WHITE BLOOD COUNT 15.3 10^3/uL (4.3-11.0)
[2020-09-19] MEDS: LACTATED RINGERS 1,000 ML IV PRN ×2 (08:45→10:15)
[2020-09-19] MEDS ORDERED: CLINDAMYCIN 600 MG/50 ML IVPB 50 ML IV ONE ×2 (08:46→09:30)
[2020-09-19] MEDS ORDERED: LIDOCAINE/EPI 1%-1:100,000 (XYLOCAINE) 20ML ONE (08:46)
[2020-09-19 09:06] LABS: BASOPHILS % (MANUAL) 0 %; EOSINOPHILS % (MANUAL) 1 %; LYMPHOCYTES % (MANUAL) 41 %; MONOCYTES % (MANUAL) 2 %; NEUTROPHILS % (MANUAL) 56 %
[2020-09-19 09:07] LABS: RBC MORPH NORMAL
[2020-09-19] MEDS ORDERED: MIDAZOLAM 2 MG/2 ML (VERSED) VIAL ONE (09:17)
[2020-09-19] MEDS ORDERED: LIDOCAINE PF 2% 5 ML (XYLOCAINE) VIAL ONE (09:17)
[2020-09-19] MEDS ORDERED: fentaNYL INJ 100 MCG/2 ML AMP ONE (09:17)
[2020-09-19] MEDS ORDERED: proPOfol 200 MG/20 ML (DIPRIVAN) VIAL IV ONE (09:17)
[2020-09-19] MEDS ORDERED: GLYCOPYRROLATE 0.2 MG/ML (ROBINUL) 2 ML VIAL ONE (09:17)
[2020-09-19] MEDS ORDERED: NEOSTIGMINE 3 MG/3 ML VIAL ONE (09:17)
[2020-09-19] MEDS ORDERED: ONDANSETRON 4 MG/2 ML (SDV) Z0FRAN ONE (09:17)
[2020-09-19] MEDS ORDERED: ROCURONIUM 10 MG/ML 5 ML SYRINGE IV ONE (09:17)
[2020-09-19] MEDS ORDERED: HYDROmorphone 2 MG/ML VIAL (DILAUDID) IV ONE (09:30)
[2020-09-19] MEDS ORDERED: ONDANSETRON 4 MG/2 ML (SDV) Z0FRAN IVP PRN (09:30)
[2020-09-19] MEDS ORDERED: morphine INJ 10 MG/ML 1ML (SYR OR VIAL) IVP ONE (09:30)
--- NOTE | 2020-09-19 10:37 | Progress Note-Post Operative ---
Post-Operative Progess Note Surgeon (s)/Day Habilitation Supervisor (s) Surgeon RODNEY NUNEZ DO Day Habilitation Supervisor: Cameron Pre-Operative Diagnosis incarcerated Ventral/incisional hernia Post-Operative Diagnosis same Procedure & Operative Findings Date of Procedure 09/19/20 Procedure Performed/Findings PROCEDURE: Laparoscopic Ventral/Incisional hernia repair with mesh. COMPLICATIONS: None. INDICATIONS: The patient is a 70, female with an incarcerated ventral/incisional hernia, which has continued to increase in size and cause discomfort. The patient was explained the risk and benefits of the procedure and wished to proceed with the procedure. Consent was signed on the chart. DESCRIPTION OF PROCEDURE: The patient was taken into the operating suite, prepped and draped in sterile fashion. Surgical pause was performed. Local anesthetic was infiltrated in left upper quadrant. A #11 blade scalpel was used to make a small skin incision. Cautery was used to dissect down to the fascia, which was then scored and divided the muscle, went through the posterior sheath and a balloon trocar was inserted into the abdomen. The abdomen was then insufflated; incarcerated incisional hernia was seen and picture taken. A 5 mm trocar was placed in the right lower quadrant and a 5 mm trocar was placed in left lower quadrant. [The appx 5cm defect was then closed using 0 Vicryl with a Sanjay-Ciara; 3 simple sutures].Echo Ventralight mesh was then inserted in the abdomen grabbed through the stab incision. The balloon was inflated on the mesh. Circumferential tacks were placed with a SecureStrap Tacker. The balloon was then removed and inner crown was created as well. The mesh was tacked with pressure being decreased. The 12 mm fascial defect in the LUQ was then closed using 0 Vicryl. The abdomen was then desufflated,the trocars were removed. The skin was then closed using 4-0 Monocryl in a running subcuticular fashion. The abdomen was washed and dried and Skin Affix was placed over the incisions. The patient tolerated procedure well without any complications. She was taken to recovery room in stable condition. Dr. Barnes assisted on this case helping to make incisions, close incisions, identify anatomy and hold anatomy out of the way. Anesthesia Type GET Estimated Blood Loss Estimated blood loss (mL): scant Specimens/Packing Specimens Removed none RODNEY NUNEZ DO Sep 19, 2020 10:37
[2020-09-19] MEDS ORDERED: ACHD5005 PO (10:38)
--- NOTE | 2020-09-19 10:39 | Discharge Inst-Surgical ---
Discharge Inst-Surgical Depart Medication/Instructions New, Converted or Re-Newed RX: RX Given to Pt/Family Patient Instructions Follow up Appt: Make appointment for 1 week. [phone] Instructions: No lifting greater than 20 pounds. No strenuous activity. May shower in 24 hours, no tub bath or soaking. Use incentive spirometer at home as directed. No Smoking Skin/Wound Care: May remove bandages in am. You need to leave the Dermabond on incision it will fall off on it's own. Symptoms to Report: Appetite Changes, Extremity Discoloration, Numbness/Tingling, Swelling Increased, Bleeding Excessive, Eyesight Changes, Pain Increased, Urine Color Change, Constipation(Persistent), Fever over 101 degree F, Pain/Pressure in chest, Urinating Difficulty, Cough Up/Vomit Blood, Heart Beat Irreg/Pounding, Pain/Pressure in jaw, Cramps in feet or legs, Lightheadedness, Pain/Pressure in shoulder, Diarrhea(Persistent), Memory Changes Suddenly, Questions/Concerns, Weight gain consecutive days, Dizziness/Fainting, Nausea/Vomiting, Shortness of Breath, Weight gain over 2 pounds If questions or concerns contact your physician Or seek help at emergency department. Activity Activity as Tolerated: Yes Activity Instructions: Avoid Stress to Incision Driving Instructions: No Driving/Refer to Dr. Ding Discharge Diet: No Restrictions Diet After 24 Hours: Clear Liquid if Nauseous If Any Problems/Questions/Issu: Contact Your Physician, Go to Emergency Room Skin/Wound Care Infection Signs and Symptoms: Increased Redness, Foul Odor of Wound, Increased Drainage, Skin Itchy or Has a Rash, Increased Swelling, Temperature Above 101 F Wound Care Comment: heating pad to shoulder or neck tonight for pain Bathing Instructions: Shower Stitches/Luz/Dermabond Dis: Dermabond Ice Pack: Ice On and Off Site RODNEY NUNEZ DO Sep 19, 2020 10:39
[2020-09-19] MEDS ORDERED: SEVOFLURANE (ULTANE) 15 ML INHAL SOLN ONE (10:40)
[2020-09-19] MEDS ORDERED: HYDROcodone/APAP 5 MG/325 MG (LORTAB) TAB ONE (11:45)
[2020-09-19] MEDS ORDERED: HYDROcodone/APAP 5 MG/325 MG (LORTAB) TAB PO ONE (12:15)
--- NOTE | 2020-09-19 13:26 | Anesthesia-General Post-Op ---
General Patient Condition Mental Status/LOC: Same as Preop Cardiovascular: Satisfactory Nausea/Vomiting: Absent Respiratory: Satisfactory Pain: Controlled Complications: Absent Post Op Complications Complications None Follow Up Care/Instructions Patient Instructions None needed. Anesthesia/Patient Condition Patient Condition Patient is doing well, C/O some abdominal pain which is to be expected, stable vital signs, no apparent adverse anesthesia problems. MILIND CASEY 23, 2021 13:26
== END 2020-09-19 14:15 | disposition home or self-care (01) ==
LOC: SDC 08:07
PROVIDERS: ATTEND Surgery
DX: K43.2 Incisional hernia without obstruction or gangrene (principal); I10 Essential (primary) hypertension; E11.9 Type 2 diabetes mellitus without complications; E78.5 Hyperlipidemia, unspecified; F17.210 Nicotine dependence, cigarettes, uncomplicated; Z79.82 Long term (current) use of aspirin; Z79.899 Other long term (current) drug therapy; Z79.84 Long term (current) use of oral hypoglycemic drugs; Z90.89 Acquired absence of other organs; Z79.02 Long term (current) use of antithrombotics/antiplatelets
CPT/HCPCS: 49654; 82947; 85007; 85027; 87081; C1781; 36415

== ENCOUNTER → 2021-07-30 | Outpatient (CLI) | payer MEDICARE ==
[~2021-07-30] MED LIST changes: +CLIN-144 PO; -CLIN300C12 PO
--- NOTE | 2021-07-30 10:12 | Diagnostic Imaging Report ---
INDICATION: M85.89, postmenopausal state. COMPARISON: 05/25/2018 FINDINGS: AP Spine L1-L4: [BMD (g/cm2): 0.848] [T-Score: -2.9] [Z-Score: -1.0] [BMD Previous: 0.982] [BMD % Change: -13.6] LT Hip Neck: [BMD (g/cm2): 0.933] [T-Score: -0.8] [Z-Score: 1.1] LT Hip Total: [BMD (g/cm2):0.849] [T-Score:-1.3] [Z-Score: 0.4] [BMD Previous: 0.885] [BMD % Change: -4.1] RT Hip Neck: [BMD (g/cm2):0.814] [T-Score:-1.6] [Z-Score:0.3] RT Hip Total: [BMD (g/cm2):0.781] [T-score:-1.8] [Z-Score:-0.1] [BMD Previous:0.821] [BMD % Change:-4.9] *Indicates significant change from prior examination based on 95% confidence level. World Health Organization criteria for BMD interpretation classify patients as Normal (T-score at or above -1.0), Osteopenic (T-score between -1.0 and -2.5) or Osteoporotic (T-score at or below -2.5). LIMITATIONS AND MODIFICATION: None. IMPRESSION: 1. Osteoporosis. 2. No significant change in bone mineral density since prior examination. 3. See below National Osteoporosis Foundation guidelines on when to potentially initiate pharmacologic therapy. Based on the National Osteoporosis Foundation Guidelines, pharmacologic treatment should be initiated in any of the following, unless clinical conditions suggest otherwise: * Any patient with prior fragility fracture of the hip or vertebrae. A spine fracture indicates 5X risk for subsequent spine fracture and 2X risk for subsequent hip fracture. * Osteoporosis (T-score <-2.5). * Postmenopausal women and men age 50 and older with low bone mass/osteopenia (T-score between -1.0 and -2.5) by DXA and 10-year major osteoporotic fracture greater than 20% or a 10-year probability of hip fracture greater than 3%. These fracture risks are supplied above in the FRAX score, if applicable. * Clinician judgement and/or patient preferences may indicate treatment for people with 10-year fracture probabilities above or below these levels. Dictated by: Dictated on workstation # [id number]
== END ==
LOC: RAD 09:00
PROVIDERS: ATTEND Nurse Practitioner
DX: M81.0 Age-related osteoporosis without current pathological fracture (principal); M85.80 Other specified disorders of bone density and structure, unspecified site; Z78.0 Asymptomatic menopausal state
CPT/HCPCS: 77080

== ENCOUNTER → 2021-08-02 | Outpatient (CLI) | payer MEDICARE ==
--- NOTE | 2021-08-02 11:12 | Diagnostic Imaging Report ---
EXAMINATION: Lumbar spine MRI, 08/02/2021. TECHNIQUE: Multiplanar, multisequence MRI of the lumbar spine was performed without contrast. INDICATION: History of arthritis. Chronic low back pain. COMPARISON: 06/01/2015. FINDINGS: There is a mild scoliotic deformity. There is no significant subluxation. Vertebral body heights appear maintained. The tip of the conus is unremarkable in appearance and location. L1-L2: There is bilateral facet and ligamentum flavum hypertrophy. No central stenosis is appreciated. The neural foramina appear patent. L2-L3: There is intervertebral disc space narrowing and disc desiccation with a mild broad-based bulging disc. There is bilateral facet and ligamentum flavum hypertrophy, but no central stenosis is appreciated. There is moderate bilateral neural foraminal narrowing, left greater than right. L3-L4: There is intervertebral disc space narrowing and disc desiccation with a broad-based bulging disc. This contains a small annular tear. There is bilateral facet and ligamentum flavum hypertrophy. There is minimal central narrowing with narrowing of the left lateral recess. There is moderate bilateral neural foraminal stenosis. L4-L5: There is intervertebral disc space narrowing, disc desiccation, and a broad-based bulging disc with a central annular tear. There is bilateral facet and ligamentum flavum hypertrophy. There is veeb-ib-[id number] central stenosis with narrowing of the lateral recesses. There is moderate left and [id number] right neural foraminal stenosis. L5-S1: There is intervertebral disc space narrowing, disc desiccation, and a broad-based bulging disc with bilateral facet hypertrophy. No central narrowing is appreciated. There is moderate bilateral neural foraminal narrowing. Visualized intra-abdominal structures are normal in appearance. IMPRESSION: 1. Mild scoliotic deformity with multilevel degenerative findings as discussed above. Dictated by: Dictated on workstation # [id number]
== END ==
LOC: RAD 08:00
PROVIDERS: ATTEND Nurse Practitioner
DX: M51.37 Other intervertebral disc degeneration, lumbosacral region (principal); M48.07 Spinal stenosis, lumbosacral region; M47.817 Spondylosis without myelopathy or radiculopathy, lumbosacral region; M51.26 Other intervertebral disc displacement, lumbar region
CPT/HCPCS: 72148